=== PATIENT | male | born 1955 | race Caucasian/White ===

== ENCOUNTER 2019-05-28 06:55 | Day surgery (SDC) | payer OTHER ==
[~2019-05-28] VITALS: Ht 180.3 cm; Wt 93.0 kg
[~2019-05-28 06:55] MED LIST: ALPRAZOLAM0.5 MG PO; ASPIRIN EC81 MG PO; ASPIRIN325 MG PO; BUSPIRONE HCL5 MG PO; CARVEDILOL25 MG PO; CELEXA40 MG PO; CITALOPRAM HBR40 MG PO; CLINDAMYCIN HC300 MG PO; CLONAZEPAM0.5 M1 SL; CLONAZEPAM0.5 MG PO; CRESTOR10 MG PO; CYMBALTA60 MG PO; DIAZEPAM5 MG PO; FLOMAX0.4 MG PO; GABAPENTIN300 MG PO; HYDROCODON-ACE1 EAC8 PO; HYDROXYZINE HCL50 MG PO; JARDIANCE25 MG PO; LACTULOSE10 GM/151 PO; LANTUS100 UNITS/ SUB-Q; LISINOPRIL20 MG PO; MAGNESIUM OXID420 MG PO; MELATONIN5 M2 PO; METOPROLOL SUCC50 MG PO; METOPROLOL TART25 MG PO; MINIPRESS5 MG PO; NICORETTE4 M1 BUCCAL; NORTRIPTYLINE H50 MG PO; NORVASC5 MG PO; NOVOLOG FL100 UNIT/1 SUB-Q; OMEPRAZOLE20 MG PO; PAMELOR50 MG PO; TOPROL XL50 MG PO; TRAZODONE HCL50 MG PO; VIAGRA100 MG PO; VITAMIN D-32000 UNIT PO
--- NOTE | 2019-05-28 10:17 | NUR ---
05/28/19 1017 DANE LARSON 1009 PATIENT CAME IN TO PACU FROM OR AND NEEDED AIRWAY SUPPORT. RN JOHN HELD AIRWAY FOR APPROXIMATELY 2 MINUTES UNTIL PATIENT WOKE UP ENOUGH TO SUPPORT IT HIMSELF. PATIENT IS ON 6L O2 MASK. RESTING COMFORTABLY.
--- NOTE | 2019-05-28 11:03 | NUR ---
PT IS BACK TO DS FROM PACU. HE IS AWAKE AND ORIENTED. CALL LIGHT WITHIN REACH. WATER ON BEDSIDE TABLE. NO ADDITIONAL NEEDS A THIS TIME.
--- NOTE | 2019-05-28 11:48 | NUR ---
WALT 1120: PT IS ASSISTED UP OOB WITH STANDBY ASSIST TO THE RESTROOM, WHERE HE IS ABLE TO VOID 100ML OF URINE. HE INDICATES THAT HE WOULD LIKE TO GO HOME. HE IS EDUCATED THAT HE HAS TO STAY FOR AT LEAST AN HOUR.
--- NOTE | 2019-05-28 12:02 | NUR ---
PT HAS MET DC CRITERIA AND INDICATES THAT HE WOULD LIKE TO GO HOME. HE IS GIVEN VERBAL DC INSTRUCTIONS, HE VERBALIZES UNDERSTANDING. HE HAS NO QUESTIONS AT THIS TIME. HE IS TAKEN TO VEHICLE BY VOLUNTEER VIA .
--- NOTE | 2019-05-28 17:32 | OR ---
[facility] [address] [place], [place] [address] Signed DATE OF OPERATION: 05/28/2019 SURGEON: Maria Esther Perez MD PREOPERATIVE DIAGNOSIS: Right mons pubis subcutaneous mass (4.3 x 4.1 x 2.4 cm). POSTOPERATIVE DIAGNOSIS: Right mons pubis subcutaneous mass (4.3 x 4.1 x 2.4 cm). PROCEDURE PERFORMED: Excision of right mons pubic subcutaneous mass. ESTIMATED BLOOD LOSS: Minimal. FINDINGS: The subcutaneous mass was quite mobile. It was not attached to any other structures, neither the muscle, underlying skin, and so forth. It was medial to the external ring, but lateral to the midline. I did have a small blood supply to it as many lymph nodes do. It was not attached to the vas deferens nor the spermatic cord in any way. Both testicles are descended within the scrotum. Both testicles are smooth without nodules other than the epididymis. The frozen section is indeterminate at this time. 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 He is now retired. He went through a divorce and he has lost a significant amount of weight. He notices subcutaneous mass in the right lower quadrant/right mons pubic area. It is quite mobile and not attached to the overlying skin or underlying muscle and other structures. He said it has been there at least a [id number]-half to his knowledge. He said it has never changed in size. To his knowledge, it has never been infected. He is not terribly bothersome, but now that he has lost weight, he does notice it with his pants and so forth. He had been to his primary care provider. An ultrasound showed the subcutaneous mass at 4.3 x 4.1 x 2.4 cm. There is internal blood flow. Consequently, he was asked to see me as a general surgeon to have it removed. In the office, I explained to Luis, we would use a somewhat transverse and oblique incision over the right mons pubis into the right groin area. He would never need a hernia repair. In the future, one can certainly use that same incision. We would excise it completely for definitive diagnosis. He understands there is risk to that surgery including, but not limited to bleeding, infection, Electronically Signed By: MARIA ESTHER PEREZ MD 05/28/19 1732 PATIENT NAME: LUIS BAIG OPERATIVE REPORT DATE OF : 51 REPORT #: [id number] PHYSICIAN: MARIA ESTHER PEREZ MD PCP: RAF VILLEGAS MD REPORT IS CONFIDENTIAL AND NOT TO BE RELEASED WITHOUT AUTHORIZATION [address] [address] Signed scarring, change in contour of the skin, as well as possible need for additional treatments and/or surgery based on the final pathologic diagnosis. He had expressed understanding wished to proceed. PROCEDURE NOTE: I met with Luis in our preop area. We both agreed in could easily palpate this mobile subcutaneous mass. We marked that appropriately. After this, Luis was taken in the operating room and placed in supine position under general LMA anesthesia. He was given preoperative antibiotics along with subcutaneous heparin. SCDs were utilized. He was then prepped and draped in the usual sterile fashion. A slightly oblique incision was made on the right lateral mons pubis headed toward the inguinal canal area. We carried this down through the tissue bluntly and with the cautery. We covered a round, firm, smooth, somewhat zari colored lesion. It was not attached to any other structures whatsoever. We did not see any chronic inflammatory changes. As is common for a lymph node, he had just a small blood vessel on the bottom and that was easily divided with the cautery. It was not attached to the vas deferens of the spermatic cord in any way. It was medial to the deep ring. We decided to take pictures for photodocumentation. In addition, we sent it down to our pathology department fresh so that it could be undergo a frozen section. At this point, the lesion is indeterminate. I explained to the pathologist that both testicles are descended within the scrotum. They are quite palpable, normal in size, no dominant nodules, and both have an uncomplicated epididymis. After this, we injected local anesthetic into the wound. The wound was irrigated and suctioned out until clear. We closed the wound with interrupted 3-0 subcuticular Monocryl sutures. The skin edges were reapproximated with running 5-0 fast absorbing plain gut suture. Dry gauze and tape were then applied. Luis was then awakened from his anesthesia, extubated in the OR, and taken to recovery room in stable condition. Maria Esther Perez MD ALB/MODL /[id number] cc: MD Christina Woods MD Electronically Signed By: MARIA ESTHER PEREZ MD 05/28/19 1732 PATIENT NAME: LUIS BAIG OPERATIVE REPORT DATE OF : 51 REPORT #: [id number] PHYSICIAN: MARIA ESTHER PEREZ MD PCP: RAF VILLEGAS MD REPORT IS CONFIDENTIAL AND NOT TO BE RELEASED WITHOUT AUTHORIZATION [facility] [address] [place], [place] [address] Signed MD ALIDA Riley NP Copies: RAF VILLEGAS MD, MERSHED MD BOWER, ANDREW L MD ~ Electronically Signed By: MARIA ESTHER PEREZ MD 05/28/19 1732 PATIENT NAME: LUIS BAIG OPERATIVE REPORT DATE OF : 51 REPORT #: [id number] PHYSICIAN: MARIA ESTHER PEREZ MD PCP: RAF VILLEGAS MD REPORT IS CONFIDENTIAL AND NOT TO BE RELEASED WITHOUT AUTHORIZATION
--- NOTE | 2019-05-30 15:54 | PATH ---
[facility] [address] [place], [place] [address] Signed SPECIMEN(S): A MONS PUBIS SPECIMEN SOURCE: A. MONS PUBIS CLINICAL HISTORY: Right mons pubis subcutaneous mass. FROZEN SECTION DIAGNOSIS: Mass right mons pubis, frozen: - Deferred to permanents. Called to OR 10:00 a.m. 05/28/19 Wade Newton M.D. NRT:judah The Gross Description was prepared using a voice recognition system. The report was reviewed for accuracy; however, sound-alike word errors, addition and/or deletions may occur. If there is any question about this report, please contact Client Services. 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 - Sent to [facility]ology for consultation. - Final diagnosis will be issued as an addendum. Preliminary diagnosis relayed to Dr. Vazquez via note 05/30/19. JERSON:NRT:judah:Teresita HELMS MICROSCOPIC EXAMINATION: Histologic sections of all submitted blocks are examined by light microscopy. These findings, together with the gross examination, support the pathologic diagnosis. Immunostains are obtained along with appropriately positive controls with the following results: [id number] S100, smooth muscle actin, desmin, CK AE1/AE3 negative. GROSS DESCRIPTION: The specimen is received fresh from surgery and is labeled "right mons pubis". It consists of a single piece of pink-echavarria, smooth-surfaced, fluctuant tissue measuring 3.8 x 3 x 2.2 cm. The surface is inked. It is serially sectioned to reveal a relatively homogeneous, fleshy PATIENT NAME: LUIS BAIG PATHOLOGY DATE OF : 51 REPORT #: [id number] PHYSICIAN: DANTE PATHOLOGY PCP: RFA VILLEGAS MD REPORT IS CONFIDENTIAL AND NOT TO BE RELEASED WITHOUT AUTHORIZATION [facility] [address] [address] Signed appearing, pink-echavarria cut surface. The portion is submitted for frozen section and subsequently for permanent sections in cassette (A1). Additional farm loan representative sections are submitted in cassettes (A2-A4). LJA:cml ADDITIONAL NOTES: Immunohistochemical and/or in situ hybridization studies were performed on this case with the appropriate positive controls that react as expected. This test was developed and its performance characteristics determined by [facility]. It has not been cleared or approved by the U.S. Food and Drug Administration. The FDA has determined that such clearance or approval is not necessary. This test is used for clinical purposes. It should not be regarded as investigational or for research. [facility] is certified under the Clinical Laboratory Improvement Amendments of 1988 (CLIA) as qualified to perform high complexity clinical laboratory testing. PERFORMING LABORATORY: [facility], [address] [address], [place], [place] [address] (Credit Operations Processor: Scooby Newton MD; CLIA# [id number]). Technical preparation was performed by [facility], [address] [facility], [facility] [address], [place], [place] [address] (Credit Operations Processor: Scooby Newton MD; CLIA# [id number]). Diagnostician: Scooby Newton MD Pathologist Electronically Signed 05/30/2019 Copies: ~ PATIENT NAME: LUIS BAIG PATHOLOGY DATE OF : 51 REPORT #: [id number] PHYSICIAN: DANTE VILLARREAL PCP: RAF VILLEGAS MD REPORT IS CONFIDENTIAL AND NOT TO BE RELEASED WITHOUT AUTHORIZATION
== END 2019-05-28 12:00 | disposition home or self-care (01) ==
LOC: DS 06:55
PROVIDERS: Colon & Rectal Surgery
PROC: 0HB9XZZ Excision of Perineum Skin, External Approach (ICD-10-PCS; principal; 2019-05-28 09:00)
DX: D49.2 Neoplasm of unspecified behavior of bone, soft tissue, and skin (principal); I10 Essential (primary) hypertension; E11.9 Type 2 diabetes mellitus without complications; M19.90 Unspecified osteoarthritis, unspecified site; F32.9 Major depressive disorder, single episode, unspecified; F43.10 Post-traumatic stress disorder, unspecified; Z88.8 Allergy status to other drugs, medicaments and biological substances; Z79.82 Long term (current) use of aspirin; Z79.899 Other long term (current) drug therapy
CPT/HCPCS: J0131; J0690; J1100; J1644; J1885; J2250; J2405; J2704; J3475; J7120

== ENCOUNTER 2020-08-23 06:33 | Emergency (ER) | payer MEDICARE ==
[~2020-08-23] VITALS: Ht 180.3 cm; Wt 78.0 kg
[~2020-08-23 06:33] MED LIST changes: +ADULT LOW DOSE81 MG PO; +ALOGLIPTIN25 MG PO; +BETHANECHOL CHL25 MG PO; +BUSPIRONE HCL10 MG PO; -BUSPIRONE HCL5 MG PO; +CELECOXIB200 MG PO; +CIPRO500 MG PO; +CRESTOR20 MG PO; +CYMBALTA30 MG PO; +FLUOXETINE HCL20 MG PO; +GLUCOSE4 GM PO; +HYDROXYZINE HCL25 MG PO; +LASIX20 MG PO; +LISINOPRIL10 MG PO; +PAMELOR10 MG PO; +PERCOCET 5-3251 EACH PO; +PROSCAR5 MG PO; +REFRESH LIQUIGE15 ML OU; +REFRESH TEARS15 ML OU; +SKIN TREATMENT400 GM TOP; +TRIAMCINOLONE A15 G1 TOP; +TYLENOL EXTRA500 MG PO; +VOLTAREN ARTHRI20 GM TOP
--- OUTSIDE RECORDS SUMMARY | 2020-08-23 06:36 | XMS ---
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 Leesa has no Care Guidelines for this patient. Anup VISIT COUNT (12 MO.) 1 KUN Liriano TOTAL 1 NOTE: Visits indicate total known visits. ED/UCC VISIT TRACKING (12 MO.) 08/23/2020 06:34 KUN Aleman OR TYPE: Emergency COMPLAINT: - FALL, WEAKNESS INPATIENT VISIT TRACKING (12 MO.) No inpatient visits to display in this time frame [email or web address]
--- NOTE | 2020-08-23 07:52 | EKG ---
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
== END 2020-08-23 19:25 ==
LOC: ED 06:33
DX: N39.0 Urinary tract infection, site not specified (principal); G93.40 Encephalopathy, unspecified; C61 Malignant neoplasm of prostate; E86.0 Dehydration; N17.9 Acute kidney failure, unspecified; E11.9 Type 2 diabetes mellitus without complications; I10 Essential (primary) hypertension; E78.5 Hyperlipidemia, unspecified; F17.200 Nicotine dependence, unspecified, uncomplicated; Z88.8 Allergy status to other drugs, medicaments and biological substances; Z79.899 Other long term (current) drug therapy
CPT/HCPCS: 51702; 70450; 71045; 72125; 72128; 72131; 80053; 81001; 83735; 84484; 85025; 87088; 93005; 93010; 99285-25; J0696; J1200; J1630; J2060; J2270; J3010; J7030; U0003